=== PATIENT | female | born 1975 | race African-American/Black ===

== ENCOUNTER 2021-04-17 11:17 | Emergency (ER) | payer OTHER, SELFPAY ==
--- NOTE | ~2021-04-17 | XR_ITS ---
EXAMINATION: LEFT SHOULDER AND LEFT KNEE. CLINICAL INFORMATION: Pain and trauma. COMPARISON: None TECHNIQUE: Left knee 4 views. Left shoulder 3 views. FINDINGS: Left shoulder: There is no visible acute fracture, dislocation or subluxation seen. No loose body seen. No bony erosive changes. The soft tissues are normal. Left knee: There is no visible acute fracture, dislocation or subluxation seen. The tricompartment joint space is normal. There is small anterior patellar enthesophyte. No joint effusion seen. XR/XR knee LT 3V IMPRESSION: Unremarkable left knee exam except for small anterior patellar enthesophyte. Unremarkable left shoulder exam with no visible acute fracture, dislocation or subluxation.
--- NOTE | ~2021-04-17 | XR_ITS ---
EXAMINATION: LEFT SHOULDER AND LEFT KNEE. CLINICAL INFORMATION: Pain and trauma. COMPARISON: None TECHNIQUE: Left knee 4 views. Left shoulder 3 views. FINDINGS: Left shoulder: There is no visible acute fracture, dislocation or subluxation seen. No loose body seen. No bony erosive changes. The soft tissues are normal. Left knee: There is no visible acute fracture, dislocation or subluxation seen. The tricompartment joint space is normal. There is small anterior patellar enthesophyte. No joint effusion seen. XR/XR shoulder LT min 2V IMPRESSION: Unremarkable left knee exam except for small anterior patellar enthesophyte. Unremarkable left shoulder exam with no visible acute fracture, dislocation or subluxation.
[2021-04-17 11:46] VITALS: BP 179/96; PULSE 75; RESP 18; TEMP 36.6; O2SAT 99; BMI 46.0
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
== END 2021-04-17 13:07 | disposition home or self-care (01) ==
PROVIDERS: Emergency Provider Emergency Medicine Emergency Medical Services; PCP Internal Medicine
DX: S40.012A Contusion of left shoulder, initial encounter (principal); S80.02XA Contusion of left knee, initial encounter; I10 Essential (primary) hypertension; J45.909 Unspecified asthma, uncomplicated; V89.2XXA Person injured in unspecified motor-vehicle accident, traffic, initial encounter; Y93.9 Activity, unspecified; Y92.481 Parking lot as the place of occurrence of the external cause; Y99.9 Unspecified external cause status
CPT/HCPCS: 73030; 73562; 99283

== ENCOUNTER 2021-04-22 10:31 | Emergency (ER) | payer OTHER, SELFPAY ==
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
[2021-04-22 10:47] VITALS: BP 198/95; PULSE 67; RESP 17; TEMP 36.6; O2SAT 100; BMI 46.0
[2021-04-22] MEDS: oxyCODONE HCl Immed Release 5 MG TABLET PO (12:04)
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
== END 2021-04-22 16:08 | disposition left against medical advice (07) ==
PROVIDERS: Emergency Provider Emergency Medicine; PCP Internal Medicine
DX: S16.1XXA Strain of muscle, fascia and tendon at neck level, initial encounter (principal); S29.012A Strain of muscle and tendon of back wall of thorax, initial encounter; V43.02XA Car driver injured in collision with other type car in nontraffic accident, initial encounter; Y93.9 Activity, unspecified; Y92.410 Unspecified street and highway as the place of occurrence of the external cause; Y99.9 Unspecified external cause status
CPT/HCPCS: 72072; 72110; 72125; 99283